=== PATIENT | female | born 1960 | race Caucasian/White ===

== ENCOUNTER → 2019-07-19 13:39 | Outpatient (BNVA) | payer MEDICARE, SELFPAY | PROVIDERS: Family Provider Nurse Practitioner; PCP Nurse Practitioner; Visit Provider Nurse Practitioner | DX: F25.1 Schizoaffective disorder, depressive type (principal); F42.2 Mixed obsessional thoughts and acts; F17.210 Nicotine dependence, cigarettes, uncomplicated | CPT/HCPCS: 90832; 99213 ==

== ENCOUNTER → 2019-07-21 09:54 | Outpatient (BNVA) | payer MEDICARE, SELFPAY | PROVIDERS: Family Provider Nurse Practitioner; PCP Nurse Practitioner; Visit Provider Nurse Practitioner | DX: F25.1 Schizoaffective disorder, depressive type (principal) | CPT/HCPCS: 80061; 83036 ==

== ENCOUNTER → 2019-10-13 07:39 | Outpatient (BNVA) | payer MEDICARE, SELFPAY | PROVIDERS: Family Provider Nurse Practitioner; PCP Nurse Practitioner; Visit Provider Nurse Practitioner | DX: F42.2 Mixed obsessional thoughts and acts (principal); F25.1 Schizoaffective disorder, depressive type | CPT/HCPCS: 99213 ==

== ENCOUNTER → 2020-01-06 07:53 | Outpatient (BNVA) | payer MEDICARE, SELFPAY | PROVIDERS: Family Provider Nurse Practitioner; PCP Nurse Practitioner; Visit Provider Nurse Practitioner | DX: F25.1 Schizoaffective disorder, depressive type (principal); F17.210 Nicotine dependence, cigarettes, uncomplicated; F42.9 Obsessive-compulsive disorder, unspecified | CPT/HCPCS: 99213 ==

== ENCOUNTER → 2020-03-31 08:26 | Outpatient (BNVA) | payer MEDICARE, SELFPAY | PROVIDERS: Family Provider Nurse Practitioner; PCP Nurse Practitioner; Visit Provider Nurse Practitioner | DX: F25.1 Schizoaffective disorder, depressive type (principal); F42.9 Obsessive-compulsive disorder, unspecified | CPT/HCPCS: 99213 ==

== ENCOUNTER → 2020-07-28 08:58 | Outpatient (BNVA) | payer MEDICARE, SELFPAY | PROVIDERS: Family Provider Nurse Practitioner; PCP Nurse Practitioner; Visit Provider Nurse Practitioner | DX: F25.1 Schizoaffective disorder, depressive type (principal); F42.9 Obsessive-compulsive disorder, unspecified | CPT/HCPCS: 99213 ==

== ENCOUNTER → 2020-10-23 08:14 | Outpatient (BNVA) | payer MEDICARE, SELFPAY | PROVIDERS: Family Provider Nurse Practitioner; PCP Nurse Practitioner; Visit Provider Nurse Practitioner | DX: F42.9 Obsessive-compulsive disorder, unspecified (principal); F25.1 Schizoaffective disorder, depressive type | CPT/HCPCS: 99214 ==

== ENCOUNTER → 2021-01-29 07:16 | Outpatient (BNVA) | payer MEDICARE, SELFPAY | PROVIDERS: Family Provider Nurse Practitioner; PCP Nurse Practitioner; Visit Provider Nurse Practitioner | DX: F42.9 Obsessive-compulsive disorder, unspecified (principal); F25.1 Schizoaffective disorder, depressive type; F17.210 Nicotine dependence, cigarettes, uncomplicated | CPT/HCPCS: 99214 ==

== ENCOUNTER → 2021-05-02 08:10 | Outpatient (BNVA) | payer MEDICARE, SELFPAY | PROVIDERS: Family Provider Nurse Practitioner; PCP Nurse Practitioner; Visit Provider Nurse Practitioner | DX: F42.9 Obsessive-compulsive disorder, unspecified (principal); F25.1 Schizoaffective disorder, depressive type; F17.210 Nicotine dependence, cigarettes, uncomplicated | CPT/HCPCS: 99214 ==

== ENCOUNTER → 2021-07-23 08:06 | Outpatient (BNVA) | payer MEDICARE, SELFPAY | PROVIDERS: Family Provider Nurse Practitioner; PCP Nurse Practitioner; Visit Provider Nurse Practitioner | DX: F42.9 Obsessive-compulsive disorder, unspecified (principal); F25.1 Schizoaffective disorder, depressive type; F17.210 Nicotine dependence, cigarettes, uncomplicated | CPT/HCPCS: 99214 ==

== ENCOUNTER → 2021-11-16 07:08 | Outpatient (BNVA) | payer MEDICARE, SELFPAY | PROVIDERS: Family Provider Nurse Practitioner; PCP Nurse Practitioner; Visit Provider Nurse Practitioner | DX: F25.1 Schizoaffective disorder, depressive type (principal); F42.9 Obsessive-compulsive disorder, unspecified; F17.210 Nicotine dependence, cigarettes, uncomplicated; Z79.899 Other long term (current) drug therapy | CPT/HCPCS: 99214 ==

== ENCOUNTER → 2021-12-05 09:46 | Outpatient (BNVA) | payer MEDICARE, SELFPAY | PROVIDERS: Family Provider Nurse Practitioner; PCP Nurse Practitioner; Visit Provider Nurse Practitioner | DX: Z79.899 Other long term (current) drug therapy (principal) | CPT/HCPCS: 80061; 83036 ==

== ENCOUNTER → 2022-11-11 10:13 | Outpatient (BNVA) | payer MEDICARE, SELFPAY | PROVIDERS: Family Provider Nurse Practitioner; PCP Family Medicine; Visit Provider Nurse Practitioner | DX: Z79.899 Other long term (current) drug therapy (principal) | CPT/HCPCS: 80061; 83036 ==